=== PATIENT | female | born 1965 | race Caucasian/White ===

== ENCOUNTER 2022-05-17 14:24 | Emergency (ER) | payer MEDICAID ==
[~2022-05-17] VITALS: Ht 157.5 cm; Wt 71.0 kg
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
[2022-05-17] MEDS ORDERED: ONDANSETRON HCL/PF 4 MG/2 ML VIAL ONE (14:41)
[2022-05-17] MEDS ORDERED: MORPHINE SULFATE INJ 4 MG/ML DISP.SYRIN ONE (14:42)
--- NOTE | 2022-05-17 14:55 | NUR ---
FIRE PROTECTION DESIGNER AT BED SIDE
--- NOTE | 2022-05-17 14:58 | NUR ---
X-RAY AT BED SIDE
[2022-05-17] MEDS ORDERED: MORPHINE SULFATE INJ 2 MG/ML DISP.SYRIN IV ONE (15:00)
[2022-05-17] MEDS ORDERED: ONDANSETRON HCL/PF 4 MG/2 ML VIAL IVP ONE (15:00)
[2022-05-17] MEDS ORDERED: CEFAZOLIN 2 GM in IV D5W 100 ML IV ONE (15:00)
[2022-05-17] MEDS ORDERED: TDAP [DIPH/PERTUSSIS/TET] 0.5 ML VIAL IM ONE ×2 (15:00→15:22)
--- NOTE | 2022-05-17 15:10 | NUR ---
SWAB FOR COVID19 SENT TO LAB
--- NOTE | 2022-05-17 15:10 | NUR ---
CALLED [facility], SPOKE TO INVESTIGATIVE SHOPPER JOEY, FAX CLINICALS AND FACESHEET TO [phone], WILL CONTACT TRAUMA SURGEON AND CALL BACK
[2022-05-17 15:17] LABS: BASOPHILS % (AUTO) 0.5 % (0.0-2.0); EOSINOPHILS % (AUTO) 1.1 % (0.0-6.0); HEMATOCRIT 37 % (33-45); HEMOGLOBIN 12.5 g/dL (11.5-14.8); LYMPHOCYTES # (AUTO) 2.8 K/uL (0.8-4.8); LYMPHOCYTES % (AUTO) 29.1 % (20.0-44.0); MEAN CORPUSCULAR HGB CONC 34 g/dl (31.0-36.0); MEAN CORPUSCULAR VOLUME 83 fL (82-100); MONOCYTES # (AUTO) 0.6 K/uL (0.1-1.30); MONOCYTES % (AUTO) 5.7 % (2.0-12.0); NEUTROPHILS # (AUTO) 6.2 K/uL (1.8-8.9); NEUTROPHILS % (AUTO) 63.6 % (43.0-81.0); PLATELET COUNT (AUTO) 339 K/uL (150-450); RED BLOOD CELL COUNT(AUTO) 4.41 MIL/uL (4.0-5.2); WHITE BLOOD COUNT (AUTO) 9.7 K/uL (4.3-11.0)
[2022-05-17 15:22] LABS: ALBUMIN 3.9 g/dL (3.4-5.0); BILIRUBIN,DIRECT 0.1 mg/dL (0.0-0.2); BILIRUBIN,TOTAL 0.3 mg/dL (0.2-1.0); CALCIUM, SERUM 8.7 mg/dL (8.5-10.1); CREATININE 0.8 mg/dL (0.6-1.3); POTASSIUM 3.2 mmol/L (3.5-5.1); TOTAL PROTEIN, SERUM 7.2 g/dL (6.4-8.2)
--- NOTE | 2022-05-17 15:51 | NUR ---
FAXED PT CLINICALS TO [facility] AWAITING A CALL BACK WITH ANY UPDATES
[2022-05-17] MEDS ORDERED: FENTANYL PF 100MCG/2ML AMPUL ONE (16:09)
--- NOTE | 2022-05-17 16:17 | NUR ---
CALLED [facility] ABOUT POSSIBLE TRAUMA TRANSFER AND WAS NOTIFIED THAT THEY ARE AT CAPACITY AT THIS TIME
[2022-05-17] MEDS ORDERED: FENTANYL PF 100MCG/2ML AMPUL IV ONE (16:30)
--- NOTE | 2022-05-17 16:31 | NUR ---
RECEIVED CALL FROM NACRISO COOK FROM [facility] WHO STATED THAT [facility] WILL NOT ACCEPTED THIS PATIENT. DR DICKENS MADE AWARE.
--- NOTE | 2022-05-17 16:36 | NUR ---
CALLED [facility] FOR POSSIBLE TRAUMA TRANSFER. DID FAX PT CLINICALS TO [phone]. NOW AWAITING A CALLBACK FOR ANY UPDATES FOR ACCEPTANCE
[2022-05-17] MEDS ORDERED: IV NS 0.9% 1,000 ML IV ONE (17:00)
[2022-05-17] MEDS ORDERED: HYDROMORPHONE 1 MG/1 ML DISP.SYRIN IV ONE ×2 (17:30→20:00)
[2022-05-17] MEDS ORDERED: HYDROMORPHONE 1 MG/1 ML DISP.SYRIN ONE ×2 (17:32→20:19)
--- NOTE | 2022-05-17 18:19 | NUR ---
FOLLOWED UP WITH [facility] REGARDING PT ACCEPTANCE UPDATE AND WAS NOTIFIED THAT THE PT DOES NOT HAVE AN AVAILABLE BED FOR THE PT. ALSO WAS NOTIFIED THAT WE WILL RECIEVE A CALL BACK AT 1999 WITH UPDATE
--- NOTE | 2022-05-17 18:46 | NUR ---
[facility] BLS TO [facility] ETA 90-120 MINUTES
[2022-05-17 19:46] VITALS: BP 142/77
--- NOTE | 2022-05-17 20:09 | NUR ---
REPORT GIVEN TO CHELSEA STUART [place] [phone] FOR SHILPA
--- NOTE | 2022-05-17 20:20 | NUR ---
0.5 MG DILAUDID ADMINSTERRED PER MD DICKENS ORDER
--- NOTE | 2022-05-17 20:24 | NUR ---
PT PICKED UP BY [facility] FOR TRANSPORT TO [facility]. PT PACKET PROVIDED TO ORGANISATIONAL PSYCHOLOGIST. ALL V/S STABLE AT TIME OF TRANSFER.
== END 2022-05-17 23:12 | disposition short-term general hospital (02) ==
LOC: ER 14:25
DX: S52.501B Unspecified fracture of the lower end of right radius, initial encounter for open fracture type I or II (principal); S52.601B Unspecified fracture of lower end of right ulna, initial encounter for open fracture type I or II; S80.11XA Contusion of right lower leg, initial encounter; V86.09XA Driver of other special all-terrain or other off-road motor vehicle injured in traffic accident, initial encounter; Y92.414 Local residential or business street as the place of occurrence of the external cause
CPT/HCPCS: 29125; 36415; 71045; 73090; 73130; 73590; 80048; 80076; 84484; 85025; 85730; 87426; 90471; 90715; 93005; 96361; 96365; 96375; 96376; 99291; A6403 ×2; C9803; J0690; J1170 ×2; J2270; J2405; J3010; J7060

== ENCOUNTER 2025-08-24 12:59 | Emergency (ER) | payer MEDICAID ==
[~2025-08-24] VITALS: Ht 154.9 cm; Wt 68.0 kg
[2025-08-24] MEDS ORDERED: KETOROLAC TROMETHAMINE 15 MG/ML VIAL ONE (13:33)
[2025-08-24] MEDS ORDERED: HYDROCODONE/APAP 5/325MG TABLET ONE (13:34)
[2025-08-24] MEDS ORDERED: HYDR-4303 PO (13:35)
[2025-08-24] MEDS: KETOROLAC TROMETHAMINE 15 MG/ML VIAL IM ONE (13:40)
[2025-08-24] MEDS: HYDROCODONE/APAP 5/325MG TABLET PO ONE (13:41)
[2025-08-24 13:53] VITALS: BP 120/70; TEMP 97.9; O2SAT 98
== END 2025-08-24 13:53 | disposition home or self-care (01) ==
LOC: ER 13:03
DX: S83.242A Other tear of medial meniscus, current injury, left knee, initial encounter (principal); G89.29 Other chronic pain; M25.562 Pain in left knee; X58.XXXA Exposure to other specified factors, initial encounter; Y93.89 Activity, other specified; Y92.89 Other specified places as the place of occurrence of the external cause; Y99.8 Other external cause status
CPT/HCPCS: 99283; 96372; J1885